=== PATIENT | female | born 1935 | race Caucasian/White ===

== ENCOUNTER 2020-03-09 14:00 | Emergency (ER) | payer MEDICARE, OTHER ==
[~2020-03-09] VITALS: Ht 152.4 cm; Wt 135.6 kg
[2020-03-09] MEDS ORDERED: ULTRAM50 MG PO (14:24)
[2020-03-09] MEDS ORDERED: SIMVASTATIN5 MG PO (14:25)
[2020-03-09] MEDS ORDERED: HEARTBURN RELIE20 MG PO (14:35)
[2020-03-09] MEDS ORDERED: COZAAR100 MG PO (14:35)
[2020-03-09] MEDS ORDERED: HYDROCHLOROTH12.5 M1 PO (14:36)
[2020-03-09] MEDS ORDERED: ALLERGY MEDICAT25 MG PO (14:36)
[2020-03-09] MEDS ORDERED: MAGNESIUM500 MG PO (14:37)
[2020-03-09] MEDS ORDERED: TURMERIC500 M2 PO (14:38)
[2020-03-09] MEDS ORDERED: GINKGO BILOBA120 M1 PO (14:38)
[2020-03-09] MEDS ORDERED: MULTI-VITAMIN1 EACH PO (14:39)
[2020-03-09] MEDS ORDERED: VITAMIN D325 MC2 PO (14:39)
[2020-03-09] MEDS ORDERED: PREDNISONE20 MG PO (16:21)
== END 2020-03-09 16:40 | disposition home or self-care (01) ==
LOC: ED 14:00
DX: M54.32 Sciatica, left side (principal); I10 Essential (primary) hypertension; E78.5 Hyperlipidemia, unspecified; K21.9 Gastro-esophageal reflux disease without esophagitis; Z88.6 Allergy status to analgesic agent; Z88.2 Allergy status to sulfonamides; Z79.899 Other long term (current) drug therapy
CPT/HCPCS: 73502; 99283-25; J7512